=== PATIENT | male | born 2000 ===

== ENCOUNTER 2024-02-29 23:48 | Emergency (ER) | payer OTHER ==
[~2024-02-29] VITALS: Ht 167.6 cm; Wt 90.9 kg
[~2024-02-29 23:48] MED LIST: BENTYL 20MG20 MG/TAB PO; CORTISPORIN EY7.5 ML OU; VANCOCIN H125 MG/CAP PO; ZOFRAN ODT4 MG PO
[2024-02-29 23:54] VITALS: TEMP 98.2
[2024-03-01] MEDS ORDERED: Mag/Al Hydrox/Simeth Susp 30 ML CUP PO ONE (00:15)
[2024-03-01 00:26] LABS: BASO # 0.2 K/mm3 (0.0-0.2); BASO % 1.4 % (0.0-2.0); EOS # 0.9 K/mm3 (0.0-0.7); EOS % 8.6 % (0.0-4.0); GRAN # 6.4 K/mm3 (1.4-6.5); GRAN % 59.5 % (42.2-75.2); HEMATOCRIT 39.4 % (42.0-52.0); HEMOGLOBIN 13.7 g/dl (13.5-18.0); LYMPH % 18.7 % (20.0-51.0); MEAN CELL VOLUME 81 fl (80.0-100.0); MEAN CORPUSCULAR HEMOGLOBIN 28 pg (27-31); MEAN CORPUSCULAR HGB CONC 35 g/dl (33.0-37.0); MEAN PLATELET VOLUME 9.7 fl (7.4-10.4); MONO # 1.2 K/mm3 (0.1-0.6); MONO % 11.3 % (1.7-9.3); PLATELET COUNT 255 K/mm3 (130-400); RED BLOOD COUNT 4.88 M/mm3 (4.20-5.60); REDCELL DISTRIBUTION WIDTH-CV 11.8 % (11.5-14.5)
[2024-03-01] MEDS ORDERED: NS 1,000 ML IV ONE (00:30)
[2024-03-01 00:53] VITALS: O2SAT 97
[2024-03-01 01:04] LABS: ALANINE AMINOTRANSFERASE 23 U/L (0-55); ALBUMIN 3.9 g/dL (3.5-5.0); ALKALINE PHOSPHATASE 49 U/L (40-150); ANION GAP 11 mmol/L (7-16); AST,SGOT 22 U/L (5-34); BILIRUBIN,TOTAL 0.8 mg/dL (0.2-1.2); BLOOD UREA NITROGEN 16 mg/dL (9-21); CALCIUM 9.2 mg/dL (8.4-10.2); CHLORIDE 104 mEq/L (98-107); CREATININE, serum 1.09 mg/dL (0.72-1.25); GLUCOSE 121 mg/dL (70-99); POTASSIUM 3.7 mEq/L (3.5-4.5); SODIUM 135 mEq/L (136-145); TOTAL PROTEIN 7.2 g/dl (6.2-8.1)
[2024-03-01 01:16] LABS: TROPONIN-I < 0.010 ng/mL (0.00-0.033)
[2024-03-01 01:27] VITALS: BP 106/66; PULSE 79
== END 2024-03-01 01:27 | disposition home or self-care (01) ==
LOC: COL.ER 23:48
PROVIDERS: Physician Assistant
DX: K30 Functional dyspepsia (principal); R00.0 Tachycardia, unspecified
CPT/HCPCS: J7030